=== PATIENT | female | born 1990 | race African-American/Black ===

== ENCOUNTER 2017-04-05 18:38 | Emergency (ER) | payer SELFPAY ==
[2017-04-05 18:48] VITALS: BP 98/66; PULSE 83; TEMP 98.6; BMI 23.8
--- NOTE | 2017-04-05 19:09 | PDOC ---
History of Present Illness - General History Source: Patient Exam Limitations: No Limitations - History of Present Illness Initial Comments: 04/05/17 19:43 The patient is a 26 year old female at 17 weeks with a significant past medical history of Asthma who presents to the emergency department with LLQ abdominal pain. Patient describes pain as sharp, intermittent with no associated nausea, vomiting or diarrhea. Patient denies taking any medications for relief. Upon evaluation, bedside ultrasound reveals heart rate of 153 bpm. Patient denies any vaginal itching, discharge or blood. Patient denies chest pain, headache or dizziness. She denies fever, chills, abdominal pain, nausea, vomit, diarrhea or constipation. She denies dysuria, frequency, urgency or hematuria. Allergies: Aspirin, sulfonamide antibiotics Past surgical history: None Social history: Marijuana, Daily cigarette user PCP: None <Caryl Beckman - Last Filed: 04/05/17 19:43> <Amberly Boyle - Last Filed: 04/05/17 20:51> - General Chief Complaint: Pain Stated Complaint: CRAMPS/17 WKS Time Seen by Provider: 04/05/17 19:06 Past History <Caryl Beckman - Last Filed: 04/05/17 19:43> - Past Medical History Asthma: Yes - Reproductive History Is Patient Now?: Yes (#): 5 Para: 0 Therapeutic (s) & number: Yes (4) - Psycho/Social/Smoking Cessation Hx Anxiety: No Suicidal Ideation: No Smoking History: Current every day smoker Number of Cigarettes Smoked Daily: 2 Information on smoking cessation initiated: No Hx Alcohol Use: No Drug/Substance Use Hx: Yes (MARIJUANA) Substance Use Type: Marijuana <Amberly Boyle - Last Filed: 04/05/17 20:51> - Past Medical History Allergies/Adverse Reactions: Allergies Allergy/AdvReac Type Severity Reaction Status Date / Time aspirin Allergy Difficulty Verified 04/05/17 18:40 Breathing Sulfa (Sulfonamide Allergy Hives Verified 04/05/17 18:40 Antibiotics) Home Medications: Ambulatory Orders Vits #93/Iron Fum/FA [ Formula Tablet] 1 each PO DAILY Review of Systems - Review of Systems Able to Perform ROS?: Yes Comments:: 04/05/17 19:43 CONSTITUTIONAL: Absent: fever, chills, diaphoresis, generalized weakness, malaise, loss of appetite HEENT: Absent: rhinorrhea, nasal congestion, throat pain, throat swelling, difficulty swallowing, mouth swelling, ear pain, eye pain, visual Changes CARDIOVASCULAR: Absent: chest pain, syncope, palpitations, irregular heart rate, lightheadedness , peripheral edema RESPIRATORY: Absent: cough, shortness of breath, dyspnea with exertion, orthopnea, wheezing, stridor, hemoptysis GASTROINTESTINAL: +LLQ abdominal pain Absent: , abdominal distension, nausea, vomiting, diarrhea, constipation, melena, hematochezia GENITOURINARY: Absent: dysuria, frequency, urgency, hesitancy, hematuria, flank pain, genital pain MUSCULOSKELETAL: Absent: myalgia, arthralgia, joint swelling SKIN: Absent: rash, itching, pallor HEMATOLOGIC/IMMUNOLOGIC: Absent: easy bleeding, easy bruising, lymphadenopathy, frequent infections ENDOCRINE: Absent: unexplained weight gain, unexplained weight loss, heat intolerance, cold intolerance NEUROLOGIC: Absent: headache, focal weakness or paresthesias, dizziness, unsteady gait, seizure, mental status changes, bladder or bowel incontinence PSYCHIATRIC: Absent: anxiety, depression, suicidal or homicidal ideation, hallucinations. <Caryl Beckman - Last Filed: 04/05/17 19:43> *Physical Exam - Vital Signs Last Vital Signs Temp Pulse Resp BP Pulse Ox 98.6 F 83 19 98/66 100 04/05/17 18:40 04/05/17 18:40 04/05/17 18:40 04/05/17 18:40 04/05/17 18:40 - Physical Exam Comments: 04/05/17 19:43 GENERAL: Well developed, well nourished. Awake and alert. No acute distress. HEENT: Normocephalic, atraumatic. PERRLA, EOMI. No conjunctival pallor. Sclera are non- icteric. Moist mucous membranes. Oropharynx is clear. NECK: Supple. Full ROM. No JVD. Carotid pulses 2+ and symmetric, without bruits. No thyromegaly. No lymphadenopathy. CARDIOVASCULAR: Regular rate and rhythm. No murmurs, rubs, or gallops. Distal pulses are 2+ and symmetric. PULMONARY: No evidence of respiratory distress. Lungs clear to auscultation bilaterally. No wheezing, rales or rhonchi. ABDOMINAL: Soft. Non-tender. Non-distended. No rebound or guarding. No organomegaly. Normoactive bowel sounds. MUSCULOSKELETAL Normal range of motion at all joints. No bony deformities or tenderness. No CVA tenderness. EXTREMITIES: No cyanosis. No clubbing. No edema. No calf tenderness. SKIN: Warm and dry. Normal capillary refill. No rashes. No jaundice. NEUROLOGICAL: Alert, awake, appropriate. Cranial nerves 2-12 intact. No deficits to light touch and temperature in face, upper extremities and lower extremities. No motor deficits in the in face, upper extremities and lower extremities. Normoreflexic in the upper and lower extremities. Normal speech. Toes are downgoing bilaterally. Gait is normal without ataxia. PSYCHIATRIC: Cooperative. Good eye contact. Appropriate mood and affect. <Caryl Beckman - Last Filed: 04/05/17 19:43> - Vital Signs Last Vital Signs Temp Pulse Resp BP Pulse Ox 98.6 F 83 19 98/66 100 04/05/17 18:40 04/05/17 18:40 04/05/17 18:40 04/05/17 18:40 04/05/17 18:40 <Amberly Boyle - Last Filed: 04/05/17 20:51> ED Treatment Course - LABORATORY CBC & Chemistry Diagram: 04/05/17 19:30 04/05/17 19:30 <Amberly Boyle - Last Filed: 04/05/17 20:51> Medical Decision Making - Medical Decision Making 04/05/17 20:28 a/p: 26yo female with L lower abd pain. No vaginal complaints. 17weeks preg by dates -labs -bedside u/s shows IUP with FHR 153 -will check official ultrasound -re-eval 04/05/17 20:45 re-eval: pt without pain in the ED. pt feels fine. discussed lab results. pt stable for d/c to home. discussed all reasons to return to the ED. Pt has an OB/ [facility] [facility] appt for next week. Discussed reasons for follow up. Answered all questions. <Amberly Boyle - Last Filed: 04/05/17 20:51> *DC/Admit/Observation/Transfer - Attestations Scribe Attestion: 04/05/17 19:43 Documentation prepared by Caryl Beckman, acting as ophthalmic medical technologist for Amberly Boyle DO. <Caryl Beckman - Last Filed: 04/05/17 19:43> - Discharge Dispostion Admit: No - Attestations Physician Attestion: 04/05/17 20:49 I, Dr. Amberly Boyle DO, attest that this document has been prepared under my direction and personally reviewed by me in its entirety. I further attest, that it accurately reflects all work, treatment, procedures and medical decision -making performed by me. <Amberly Boyle - Last Filed: 04/05/17 20:51> Diagnosis at time of Disposition: Abdominal pain during intrauterine - Referrals [facility]: [facility] [Outside] - Patient Instructions Printed Discharge Instructions: DI for Abdominal Pain -- Early Additional Instructions: [facility] [place]
[2017-04-05 19:49] LABS: URINE APPEARANCE SLCLOUDY; URINE BILIRUBIN NEGATIVE (NEGATIVE); URINE BLOOD NEGATIVE (NEGATIVE); URINE COLOR LTYELLOW; URINE GLUCOSE (UA) NEGATIVE (NEGATIVE); URINE KETONE NEGATIVE (NEGATIVE); URINE LEUK ESTERASE NEGATIVE (NEGATIVE); URINE NITRITE NEGATIVE (NEGATIVE); URINE PROTEIN NEGATIVE (NEGATIVE); URINE UROBILINOGEN NEGATIVE mg/dL (0.2-1.0)
[2017-04-05 19:50] LABS: BASOPHIL 0.4 % (0-2.0); EOSINOPHIL 0.6 % (0-4.5); MCH 31.9 pg (25.7-33.7); MCHC 34.5 g/dl (32.0-36.0); MEAN CELL VOLUME 92.3 fl (80-96); MEAN PLT VOLUME 8.3 fl (7.5-11.1); NEUTROPHILS 64.6 % (42.8-82.8); PLATELET COUNT 219 K/MM3 (134-434); RDW 13.9 % (11.6-15.6); WHITE BLOOD COUNT 8.5 K/mm3 (4.0-10.0)
[2017-04-05 20:14] LABS: ALBUMIN 3.1 g/dl (3.4-5.0); ANION GAP 7 (8-16); CALCIUM 8.8 mg/dL (8.5-10.1); CO2 22 mmol/L (21-32); CREATININE 0.4 mg/dL (0.55-1.02); GLUCOSE,RANDOM 72 mg/dL (74-106); SGOT/AST 21 U/L (15-37); SGPT/ALT 21 U/L (12-78); TOT PROT 6.5 g/dl (6.4-8.2)
[2017-04-05 20:29] LABS: ALK PHOS 44 U/L (45-117); BILIRUBIN,TOTAL 0.2 mg/dL (0.2-1.0)
== END 2017-04-05 21:06 | disposition home or self-care (01) ==
LOC: JER 18:38
DX: O26.892 Other specified pregnancy related conditions, second trimester (principal); R10.32 Left lower quadrant pain; Z3A.17 17 weeks gestation of pregnancy
CPT/HCPCS: 36415; 76815; 80053; 81003; 84702; 85025; 99282-25